=== PATIENT | female | born 1925 | race Caucasian/White ===

== ENCOUNTER 2016-08-29 15:55 | Inpatient (IN) | payer MEDICARE, BC ==
[~2016-08-29 15:55] MED LIST: ACTIVASE50 MG IV; ADULT LOW DOSE81 M1 PO; AUGMENTIN875 MG PO; BENICAR5 MG PO; BIOTIN PO; BIOTIN1 MG PO; BISCOLAX10 MG PR; BYSTOLIC10 MG PO; BYSTOLIC2.5 MG PO; CALCIUM500 M3 PO; CALCIUM600 M1 PO; CALCIUM600 MG PO; CARVEDILOL3.125 M1 PO; CEFTRIAXON2 GM/50 ML IV; COLACE100 M1 PO; COREG6.25 M1 PO; ECOTRIN325 M1 PO; ECOTRIN81 M1 PO; ECOTRIN81 M2 PO; IMDUR30 MG PO; IPRAT-ALBUT 0.5-3 ML INH; IRON PO; IRON1 TA1 PO; IRON325 ( 65 PO; ISOSORBIDE MONO30 M4 PO; LEVOTHROID25 MCG PO; LEVOTHROID50 MCG PO; LEVOTHYROXINE50 MC3 PO; LIPITOR80 M1 PO; LOVENOX30 MG/0.1 SC; MIRALAX12 EA PO; MIRALAX17 G1 PO; MIRALAX17 G2 PO; MUCINEX600 M1 PO; MUCINEX600 MG PO; NITROSTAT0.4 MG/TAB SL; NORVASC10 MG PO; NORVASC2.5 MG PO; NORVASC5 M2 PO; PLAVIX75 M1 PO; PLAVIX75 MG PO; PREDNISONE1 M1 PO; PREDNISONE10 M1; PROTONIX40 M2 PO; RANITIDINE HCL150 M3 PO; SINGULAIR10 M1 PO; SINGULAIR10 MG PO; SODIUM CHLORIDE IV; TALADINE150 MG PO; TYLENOL #31 TA1 PO; TYLENOL325 MG PO; VITAMIN D1000 UNIT PO; VYTORIN 10/80 T1 TAB PO; ZANTAC150 MG PO
[2016-08-29] MEDS ORDERED: ASPIR-LOW81 M1 PO (16:13)
[2016-08-29] MEDS ORDERED: BIOTIN1 M2 PO (16:14)
[2016-08-29] MEDS ORDERED: CALCIUM CARBON600 M2 PO (16:14)
[2016-08-29] MEDS ORDERED: COREG12.5 M1 PO (16:14)
[2016-08-29] MEDS ORDERED: LIPITOR80 M1 PO (16:14)
[2016-08-29] MEDS ORDERED: FEOSOL325 M1 PO (16:15)
[2016-08-29] MEDS ORDERED: CLOPIDOGREL75 M1 PO (16:15)
[2016-08-29] MEDS ORDERED: SYNTHROID50 MC1 PO (16:16)
[2016-08-29] MEDS ORDERED: CEFTRIAXON2000 MG/VI IV (16:16)
[2016-08-29] MEDS ORDERED: SINGULAIR10 M1 PO (16:17)
[2016-08-29] MEDS ORDERED: MUCINEX600 M1 PO (16:17)
[2016-08-29] MEDS ORDERED: PREDNISONE1 M1 PO (16:18)
[2016-08-29] MEDS ORDERED: MIRALAX17 G2 PO (16:18)
[2016-08-29] MEDS ORDERED: SENNA8.6 M2 PO (16:19)
[2016-08-29] MEDS ORDERED: TYLENOL EXTRA500 M1 PO (16:20)
[2016-08-29] MEDS ORDERED: AYR SALINE NASA14 GM (16:20)
[2016-08-29] MEDS ORDERED: CATHFLO ACTIVASE2 MG IV (16:21)
[2016-08-29] MEDS ORDERED: BISCOLAX10 MG PR (16:21)
[2016-08-29] MEDS ORDERED: IPRAT-ALBUT 0.5-3 ML INH (16:22)
[2016-08-29] MEDS ORDERED: MELATONIN5 M5 PO (16:23)
[2016-08-29] MEDS ORDERED: MILK OF MAGNESIA PO (16:23)
[2016-08-29] MEDS ORDERED: RANITIDINE HCL150 M2 PO (16:24)
[2016-08-29] MEDS ORDERED: NITROSTAT0.4 MG/TAB SL (16:24)
[2016-08-29 16:55] LABS: BASO % 0.3 % (0-2); EOS % 2.1 % (0-7); EOSINOPHIL ABSOLUTE COUNT 0.2 tho/cmm (0.0-0.7); HCT-HEMATOCRIT 28.7 % (34.0-49.0); HGB-HEMOGLOBIN 9.3 gm/dl (12.0-15.5); IMMATURE GRANULOCYTES ABSOLUTE 0.03 tho/cmm (0-0.03); IMMATURE GRANULOCYTES PERCENT 0.4 % (0-0.3); LYMPH % 6.8 % (20-45); LYMPH ABSOLUTE COUNT 0.5 tho/cmm (0.8-4.5); MCH (MEAN CORPUSCULAR HGB) 34.2 pg (28.0-32.0); MCHC MEAN CORPUSCULAR HGB CONC 32.4 % (32.0-36.0); MCV (MEAN CELL VOLUME) 105.5 fl (82.0-96.0); MEAN PLATELET VOLUME 10.5 cmc (9.4-12.4); MONO % 7.6 % (0-12); MONOCYTE ABSOLUTE COUNT 0.5 tho/cmm (0.0-1.2); NEUTROPHIL ABSOLUTE COUNT 5.9 tho/cmm (1.6-8.0); NEUTROPHIL-AUTOMATED 5.9 tho/cmm (1.6-8.0); NEUTROPHILS % 82.8 % (40-80); PLATELET COUNT 132 tho/cmm (150-450); RED BLOOD COUNT 2.72 mil/cmm (4.00-5.20); RED CELL DISTRIBUTION WIDTH 15.7 % (12.4-16.4); WHITE BLOOD COUNT 7.1 tho/cmm (4.0-10.0)
[2016-08-29 17:18] LABS: ANION GAP 10 mmol/L (0-20); BLOOD UREA NITROGEN 15 mg/dl (6-24); CALCIUM 8.9 mg/dl (8.5-10.5); CARBON DIOXIDE-VENOUS 29 mmol/L (22-32); CHLORIDE 103 mmol/l (96-110); CREATININE 0.83 mg/dl (0.50-1.10); GLUCOSE 150 mg/dL (70-110); POTASSIUM 4.3 mmol/L (3.7-5.1); SODIUM 138 mmol/L (135-145); eGFR VALUE FOR BLACK >60 mL/Min
[2016-08-29 17:49] LABS: INR 1.1 INR (0.9-1.1); PROTHROMBIN TIME 12.6 SECONDS (9.0-13.6)
[2016-08-30 04:53] LABS: ALBUMIN 3.1 g/dl (3.5-5.0); ALKALINE PHOSPHATASE 76 U/L (33-138); ALT/SGPT 32 U/L (12-78); ANION GAP 11 mmol/L (0-20); AST/SGOT 26 U/L (10-40); BLOOD UREA NITROGEN 13 mg/dl (6-24); CALCIUM 8.4 mg/dl (8.5-10.5); CARBON DIOXIDE-VENOUS 30 mmol/L (22-32); CHLORIDE 100 mmol/l (96-110); CREATININE 0.78 mg/dl (0.50-1.10); GLUCOSE 120 mg/dL (70-110); POTASSIUM 3.5 mmol/L (3.7-5.1); SODIUM 137 mmol/L (135-145); eGFR VALUE FOR BLACK >60 mL/Min
[2016-08-30 04:54] LABS: BASO % 0.5 % (0-2); EOS % 2.7 % (0-7); EOSINOPHIL ABSOLUTE COUNT 0.2 tho/cmm (0.0-0.7); HCT-HEMATOCRIT 30.1 % (34.0-49.0); HGB-HEMOGLOBIN 9.7 gm/dl (12.0-15.5); IMMATURE GRANULOCYTES ABSOLUTE 0.02 tho/cmm (0-0.03); IMMATURE GRANULOCYTES PERCENT 0.3 % (0-0.3); LYMPH % 13.6 % (20-45); MCH (MEAN CORPUSCULAR HGB) 34.4 pg (28.0-32.0); MCHC MEAN CORPUSCULAR HGB CONC 32.2 % (32.0-36.0); MCV (MEAN CELL VOLUME) 106.7 fl (82.0-96.0); MEAN PLATELET VOLUME 10.6 cmc (9.4-12.4); MONO % 6.7 % (0-12); MONOCYTE ABSOLUTE COUNT 0.5 tho/cmm (0.0-1.2); NEUTROPHIL ABSOLUTE COUNT 5.6 tho/cmm (1.6-8.0); NEUTROPHIL-AUTOMATED 5.6 tho/cmm (1.6-8.0); NEUTROPHILS % 76.2 % (40-80); PLATELET COUNT 148 tho/cmm (150-450); RED BLOOD COUNT 2.82 mil/cmm (4.00-5.20); RED CELL DISTRIBUTION WIDTH 15.9 % (12.4-16.4); WHITE BLOOD COUNT 7.4 tho/cmm (4.0-10.0)
[2016-08-30 05:53] LABS: URINE BILIRUBIN NEGATIVE (NEG); URINE BLOOD NEGATIVE (NEG); URINE GLUCOSE (UA) NEGATIVE (NEG); URINE KETONE NEGATIVE (NEG); URINE LEUKOCYTE ESTERASE NEGATIVE (NEG); URINE NITRITE NEGATIVE (NEG); URINE PH 6.5 (5.0-8.0); URINE PROTEIN NEGATIVE (NEG)
[2016-08-30 05:54] LABS: URINE APPEARANCE CLEAR; URINE COLOR PALE YELLOW; URINE SPECIFIC GRAVITY 1.012 (1.003-1.030)
[2016-08-30 20:54] LABS: PROCALCITONIN <0.05 ng/ml (0.05-0.09)
[2016-08-31 05:10] LABS: BASO % 0.7 % (0-2); EOS % 6.3 % (0-7); EOSINOPHIL ABSOLUTE COUNT 0.3 tho/cmm (0.0-0.7); HCT-HEMATOCRIT 31.7 % (34.0-49.0); HGB-HEMOGLOBIN 10.3 gm/dl (12.0-15.5); IMMATURE GRANULOCYTES ABSOLUTE 0.03 tho/cmm (0-0.03); IMMATURE GRANULOCYTES PERCENT 0.6 % (0-0.3); LYMPH % 18.8 % (20-45); MCH (MEAN CORPUSCULAR HGB) 34.2 pg (28.0-32.0); MCHC MEAN CORPUSCULAR HGB CONC 32.5 % (32.0-36.0); MCV (MEAN CELL VOLUME) 105.3 fl (82.0-96.0); MEAN PLATELET VOLUME 10.5 cmc (9.4-12.4); MONO % 7.8 % (0-12); MONOCYTE ABSOLUTE COUNT 0.4 tho/cmm (0.0-1.2); NEUTROPHIL ABSOLUTE COUNT 3.5 tho/cmm (1.6-8.0); NEUTROPHIL-AUTOMATED 3.5 tho/cmm (1.6-8.0); NEUTROPHILS % 65.8 % (40-80); PLATELET COUNT 139 tho/cmm (150-450); RED BLOOD COUNT 3.01 mil/cmm (4.00-5.20); RED CELL DISTRIBUTION WIDTH 15.5 % (12.4-16.4); WHITE BLOOD COUNT 5.4 tho/cmm (4.0-10.0)
[2016-08-31 05:27] LABS: ANION GAP 12 mmol/L (0-20); BLOOD UREA NITROGEN 14 mg/dl (6-24); CALCIUM 8.3 mg/dl (8.5-10.5); CARBON DIOXIDE-VENOUS 32 mmol/L (22-32); CHLORIDE 98 mmol/l (96-110); GLUCOSE 96 mg/dL (70-110); MAGNESIUM 1.6 mg/dl (1.3-2.6); POTASSIUM 3.7 mmol/L (3.7-5.1); SODIUM 138 mmol/L (135-145); eGFR VALUE FOR BLACK >60 mL/Min
[2016-08-31] MEDS ORDERED: LASIX40 M1 PO (15:26)
== END 2016-08-31 18:05 | disposition other institution (70) | DRG 871 ==
LOC: EDMED 15:55 → EMR2 20:16 → PCUB 23:28
PROVIDERS: Emergency Medicine; Internal Medicine; Internal Medicine Critical Care Medicine; Internal Medicine Interventional Cardiology; Nurse Practitioner Family; ADMIT Hospitalist
DX: A40.8 Other streptococcal sepsis (principal); J96.21 Acute and chronic respiratory failure with hypoxia; R65.20 Severe sepsis without septic shock; I50.33 Acute on chronic diastolic (congestive) heart failure; I13.0 Hypertensive heart and chronic kidney disease with heart failure and stage 1 through stage 4 chronic kidney disease, or unspecified chronic kidney disease; R74.8 Abnormal levels of other serum enzymes; I05.2 Rheumatic mitral stenosis with insufficiency; I27.2 Other secondary pulmonary hypertension; Z95.5 Presence of coronary angioplasty implant and graft; E87.6 Hypokalemia; E78.5 Hyperlipidemia, unspecified; I73.9 Peripheral vascular disease, unspecified; Z96.652 Presence of left artificial knee joint; N18.9 Chronic kidney disease, unspecified; E03.9 Hypothyroidism, unspecified; J45.909 Unspecified asthma, uncomplicated; K21.9 Gastro-esophageal reflux disease without esophagitis; Z86.718 Personal history of other venous thrombosis and embolism; F41.9 Anxiety disorder, unspecified; K59.09 Other constipation; I65.29 Occlusion and stenosis of unspecified carotid artery; I25.118 Atherosclerotic heart disease of native coronary artery with other forms of angina pectoris; I25.708 Atherosclerosis of coronary artery bypass graft(s), unspecified, with other forms of angina pectoris; D64.9 Anemia, unspecified; I07.1 Rheumatic tricuspid insufficiency
CPT/HCPCS: J0696; J1644; J1650; J1940; J2997; J7050; J7512; Q9967

== ENCOUNTER 2016-09-28 20:48 | Inpatient (IN) | payer MEDICARE, BC ==
[~2016-09-28 20:48] MED LIST changes: +ASPIR-LOW81 M1 PO; +AYR SALINE NASA14 GM; +BIOTIN1 M2 PO; +CALCIUM CARBON600 M2 PO; +CATHFLO ACTIVASE2 MG IV; +CEFTRIAXON2000 MG/VI IV; +CLOPIDOGREL75 M1 PO; +COREG12.5 M1 PO; +FEOSOL325 M1 PO; +LASIX40 M1 PO; +MELATONIN5 M5 PO; +MILK OF MAGNESIA PO; +RANITIDINE HCL150 M2 PO; +SENNA8.6 M2 PO; +SYNTHROID50 MC1 PO; +TYLENOL EXTRA500 M1 PO
[2016-09-28 21:39] LABS: BASO % 0.4 % (0-2); EOS % 0.3 % (0-7); HCT-HEMATOCRIT 35.1 % (34.0-49.0); HGB-HEMOGLOBIN 11.5 gm/dl (12.0-15.5); IMMATURE GRANULOCYTES ABSOLUTE 0.03 tho/cmm (0-0.03); IMMATURE GRANULOCYTES PERCENT 0.3 % (0-0.3); LYMPH ABSOLUTE COUNT 0.6 tho/cmm (0.8-4.5); MCH (MEAN CORPUSCULAR HGB) 34.2 pg (28.0-32.0); MCHC MEAN CORPUSCULAR HGB CONC 32.8 % (32.0-36.0); MCV (MEAN CELL VOLUME) 104.5 fl (82.0-96.0); MEAN PLATELET VOLUME 10.9 cmc (9.4-12.4); MONOCYTE ABSOLUTE COUNT 0.6 tho/cmm (0.0-1.2); NEUTROPHIL ABSOLUTE COUNT 8.3 tho/cmm (1.6-8.0); NEUTROPHIL-AUTOMATED 8.3 tho/cmm (1.6-8.0); PLATELET COUNT 203 tho/cmm (150-450); RED BLOOD COUNT 3.36 mil/cmm (4.00-5.20); RED CELL DISTRIBUTION WIDTH 14.4 % (12.4-16.4); WHITE BLOOD COUNT 9.5 tho/cmm (4.0-10.0)
[2016-09-28 21:55] LABS: ANION GAP 12 mmol/L (0-20); BLOOD UREA NITROGEN 30 mg/dl (6-24); CALCIUM 8.8 mg/dl (8.5-10.5); CARBON DIOXIDE-VENOUS 30 mmol/L (22-32); CHLORIDE 100 mmol/l (96-110); GLUCOSE 177 mg/dL (70-110); SODIUM 138 mmol/L (135-145); eGFR VALUE FOR BLACK 52 mL/Min
[2016-09-28 22:12] LABS: PROCALCITONIN 0.15 ng/ml (0.05-0.09)
[2016-09-29 00:38] LABS: URINE BILIRUBIN NEGATIVE (NEG); URINE BLOOD NEGATIVE (NEG); URINE GLUCOSE (UA) NEGATIVE (NEG); URINE KETONE NEGATIVE (NEG); URINE LEUKOCYTE ESTERASE NEGATIVE (NEG); URINE NITRITE NEGATIVE (NEG); URINE PH 6.5 (5.0-8.0); URINE PROTEIN NEGATIVE (NEG); URINE SPECIFIC GRAVITY 1.005 (1.003-1.030)
[2016-09-29 00:39] LABS: URINE APPEARANCE CLEAR; URINE COLOR PALE YELLOW
[2016-09-29] MEDS ORDERED: COLACE100 M1 PO (01:29)
[2016-09-29] MEDS ORDERED: NORVASC2.5 M1 PO (01:29)
[2016-09-29 03:12] LABS: ABG CO2 ARTERIAL 27 mmol/L (21-27); ARTERIAL BLD GAS O2 SATURATION 92 % (95-98); ARTERIAL BLOOD GAS PCO2 35 mmHg (32-45); ARTERIAL PO2 61 mmHg (70-100); BICARBONATE 26 mmol/L (21-28); BLOOD GAS BASE EXCESS 3 mM/L (-/+3); PH 7.48 Units (7.35-7.45)
[2016-09-29 05:21] LABS: BASO % 0.3 % (0-2); EOS % 0.1 % (0-7); HCT-HEMATOCRIT 32.5 % (34.0-49.0); HGB-HEMOGLOBIN 10.6 gm/dl (12.0-15.5); IMMATURE GRANULOCYTES ABSOLUTE 0.03 tho/cmm (0-0.03); IMMATURE GRANULOCYTES PERCENT 0.3 % (0-0.3); LYMPH % 4.8 % (20-45); LYMPH ABSOLUTE COUNT 0.4 tho/cmm (0.8-4.5); MCHC MEAN CORPUSCULAR HGB CONC 32.6 % (32.0-36.0); MCV (MEAN CELL VOLUME) 104.2 fl (82.0-96.0); MEAN PLATELET VOLUME 10.6 cmc (9.4-12.4); MONO % 5.5 % (0-12); MONOCYTE ABSOLUTE COUNT 0.5 tho/cmm (0.0-1.2); NEUTROPHIL ABSOLUTE COUNT 7.7 tho/cmm (1.6-8.0); NEUTROPHIL-AUTOMATED 7.7 tho/cmm (1.6-8.0); PLATELET COUNT 174 tho/cmm (150-450); RED BLOOD COUNT 3.12 mil/cmm (4.00-5.20); RED CELL DISTRIBUTION WIDTH 14.3 % (12.4-16.4); WHITE BLOOD COUNT 8.7 tho/cmm (4.0-10.0)
[2016-09-29 05:31] LABS: ABG CO2 ARTERIAL 29 mmol/L (21-27); ARTERIAL BLD GAS O2 SATURATION 98 % (95-98); ARTERIAL BLOOD GAS PCO2 36 mmHg (32-45); ARTERIAL PO2 87 mmHg (70-100); BICARBONATE 28 mmol/L (21-28); BLOOD GAS BASE EXCESS 5 mM/L (-/+3)
[2016-09-29 10:26] LABS: ALB/GLOB RATIO 0.8 (0.8-2.0); ALBUMIN 2.9 g/dl (3.5-5.0); ALKALINE PHOSPHATASE 63 U/L (33-138); ALT/SGPT 12 U/L (12-78); ANION GAP 13 mmol/L (0-20); AST/SGOT 27 U/L (10-40); BLOOD UREA NITROGEN 27 mg/dl (6-24); CALCIUM 7.9 mg/dl (8.5-10.5); CARBON DIOXIDE-VENOUS 27 mmol/L (22-32); CHLORIDE 104 mmol/l (96-110); CREATININE 0.98 mg/dl (0.50-1.10); GLUCOSE 137 mg/dL (70-110); POTASSIUM 3.3 mmol/L (3.7-5.1); SODIUM 141 mmol/L (135-145); eGFR VALUE FOR BLACK 59 mL/Min
--- NOTE | 2016-09-29 19:31 | NUR ---
PATIENT HAD A CRITICAL TROPONIN @ 2.99. NOTIFIED GABRIELLA WITH [facility] @ [id number]. ORDERS TO GET ANOTHER EKG. PATIENT DENIES CHEST PAIN/PRESSURE
[2016-09-30 04:37] LABS: ANION GAP 10 mmol/L (0-20); BLOOD UREA NITROGEN 34 mg/dl (6-24); CARBON DIOXIDE-VENOUS 33 mmol/L (22-32); CHLORIDE 101 mmol/l (96-110); CREATININE 1.12 mg/dl (0.50-1.10); GLUCOSE 114 mg/dL (70-110); SODIUM 141 mmol/L (135-145); eGFR VALUE FOR BLACK 50 mL/Min
[2016-09-30 04:38] LABS: POTASSIUM 2.9 mmol/L (3.7-5.1)
[2016-10-01 06:32] LABS: ANION GAP 13 mmol/L (0-20); BLOOD UREA NITROGEN 36 mg/dl (6-24); CALCIUM 8.2 mg/dl (8.5-10.5); CARBON DIOXIDE-VENOUS 26 mmol/L (22-32); CHLORIDE 106 mmol/l (96-110); CREATININE 1.39 mg/dl (0.50-1.10); GLUCOSE 154 mg/dL (70-110); SODIUM 139 mmol/L (135-145); eGFR VALUE FOR BLACK 39 mL/Min
[2016-10-01 06:35] LABS: POTASSIUM 5.6 mmol/L (3.7-5.1)
[2016-10-01 09:58] LABS: BASO % 0.1 % (0-2); HCT-HEMATOCRIT 31.3 % (34.0-49.0); HGB-HEMOGLOBIN 9.9 gm/dl (12.0-15.5); IMMATURE GRANULOCYTES ABSOLUTE 0.06 tho/cmm (0-0.03); IMMATURE GRANULOCYTES PERCENT 0.8 % (0-0.3); LYMPH % 2.9 % (20-45); LYMPH ABSOLUTE COUNT 0.2 tho/cmm (0.8-4.5); MCH (MEAN CORPUSCULAR HGB) 33.8 pg (28.0-32.0); MCHC MEAN CORPUSCULAR HGB CONC 31.6 % (32.0-36.0); MCV (MEAN CELL VOLUME) 106.8 fl (82.0-96.0); MEAN PLATELET VOLUME 10.9 cmc (9.4-12.4); MONO % 9.3 % (0-12); MONOCYTE ABSOLUTE COUNT 0.7 tho/cmm (0.0-1.2); NEUTROPHIL ABSOLUTE COUNT 6.8 tho/cmm (1.6-8.0); NEUTROPHIL-AUTOMATED 6.8 tho/cmm (1.6-8.0); NEUTROPHILS % 86.9 % (40-80); PLATELET COUNT 140 tho/cmm (150-450); RED BLOOD COUNT 2.93 mil/cmm (4.00-5.20); RED CELL DISTRIBUTION WIDTH 14.3 % (12.4-16.4); WHITE BLOOD COUNT 7.8 tho/cmm (4.0-10.0)
[2016-10-01 10:49] LABS: PROCALCITONIN 0.25 ng/ml (0.05-0.09)
[2016-10-01 12:29] LABS: HCT-HEMATOCRIT 28.9 % (34.0-49.0); HGB-HEMOGLOBIN 9.1 gm/dl (12.0-15.5); MCH (MEAN CORPUSCULAR HGB) 34.1 pg (28.0-32.0); MCHC MEAN CORPUSCULAR HGB CONC 31.5 % (32.0-36.0); MCV (MEAN CELL VOLUME) 108.2 fl (82.0-96.0); MEAN PLATELET VOLUME 11.2 cmc (9.4-12.4); NEUTROPHIL-AUTOMATED 7.3 tho/cmm (1.6-8.0); PLATELET COUNT 133 tho/cmm (150-450); RED BLOOD COUNT 2.67 mil/cmm (4.00-5.20); RED CELL DISTRIBUTION WIDTH 14.5 % (12.4-16.4); WHITE BLOOD COUNT 8.2 tho/cmm (4.0-10.0)
[2016-10-01 12:42] LABS: INR 1.6 INR (0.9-1.1); PROTHROMBIN TIME 18.9 SECONDS (9.0-13.6)
[2016-10-01 12:57] LABS: ABG CO2 ARTERIAL 15 mmol/L (21-27); ARTERIAL BLD GAS O2 SATURATION 85 % (95-98); ARTERIAL BLOOD GAS PCO2 39 mmHg (32-45); ARTERIAL PO2 67 mmHg (70-100); BICARBONATE 14 mmol/L (21-28); BLOOD GAS BASE EXCESS -14 mM/L (-/+3)
[2016-10-01 13:03] LABS: ALB/GLOB RATIO 0.8 (0.8-2.0); ALBUMIN 2.2 g/dl (3.5-5.0); ALKALINE PHOSPHATASE 68 U/L (33-138); BILIRUBIN,TOTAL 2.6 mg/dl (0-1.5); BLOOD UREA NITROGEN 41 mg/dl (6-24); CALCIUM 7.2 mg/dl (8.5-10.5); CARBON DIOXIDE-VENOUS 20 mmol/L (22-32); CHLORIDE 111 mmol/l (96-110); GLUCOSE 126 mg/dL (70-110); SODIUM 143 mmol/L (135-145)
[2016-10-01 13:07] LABS: PROCALCITONIN 0.25 ng/ml (0.05-0.09)
[2016-10-01 13:16] LABS: PH 7.16 Units (7.35-7.45)
[2016-10-01 13:26] LABS: ANION GAP 18 mmol/L (0-20); CREATININE 1.79 mg/dl (0.50-1.10); POTASSIUM 6.2 mmol/L (3.7-5.1); eGFR VALUE FOR BLACK 29 mL/Min
[2016-10-01 13:27] LABS: ALT/SGPT 1544 U/L (12-78); AST/SGOT 2402 U/L (10-40)
[2016-10-01 13:57] LABS: BAND % 18 % (0-20); BAND ABSOLUTE COUNT 1.5 tho/cmm (0-2.0)
[2016-10-01 15:04] LABS: ABG CO2 ARTERIAL 18 mmol/L (21-27); ARTERIAL BLD GAS O2 SATURATION 89 % (95-98); ARTERIAL BLOOD GAS PCO2 45 mmHg (32-45); ARTERIAL PO2 71 mmHg (70-100); BICARBONATE 17 mmol/L (21-28); BLOOD GAS BASE EXCESS -10 mM/L (-/+3)
--- NOTE | 2016-10-01 19:27 | NUR ---
RN ARRIVED IN PATIENT ROOM, SOME FAMILY AT BEDSIDE. MAXED ON ALL PRESSORS. REPORT RECEIVED. IMS PAGED FOR NO URINE OUTPUT AND HIGH K. IMS HERE AND DISCUSSING WITH FAMILY PATIENT CURRENT STATUS. TOLD FAMILY THAT IF PT'S BLOOD PRESSURE WERE TO DECREASE, WE HAVE NO MORE MEDICATION SUPPORT TO ADD. SHE CURRENTLY HAS A STABLE BLOOD PRESSURE AND HEART RATE-SEE CCU FLOW SHEET. URINE OUTPUT DISCUSSED WITH FAMILY. FAMILY IS NOW IN ROOM ALLOWING FAMILY NOT HERE TO TALK TO HER THRU THE PHONE. FAMILY ALL AT BEDSIDE. WILL CONTINUE TO MONITOR AND SUPPORT. PRESSORS ALL REMAIN MAXED.
[2016-10-01 19:29] LABS: BASO % 0.1 % (0-2); HCT-HEMATOCRIT 29.8 % (34.0-49.0); HGB-HEMOGLOBIN 9.4 gm/dl (12.0-15.5); IMMATURE GRANULOCYTES ABSOLUTE 0.08 tho/cmm (0-0.03); IMMATURE GRANULOCYTES PERCENT 0.5 % (0-0.3); LYMPH % 2.3 % (20-45); LYMPH ABSOLUTE COUNT 0.3 tho/cmm (0.8-4.5); MCH (MEAN CORPUSCULAR HGB) 33.7 pg (28.0-32.0); MCHC MEAN CORPUSCULAR HGB CONC 31.5 % (32.0-36.0); MCV (MEAN CELL VOLUME) 106.8 fl (82.0-96.0); MEAN PLATELET VOLUME 11.4 cmc (9.4-12.4); MONO % 3.4 % (0-12); MONOCYTE ABSOLUTE COUNT 0.5 tho/cmm (0.0-1.2); NEUTROPHIL ABSOLUTE COUNT 13.7 tho/cmm (1.6-8.0); NEUTROPHIL-AUTOMATED 13.7 tho/cmm (1.6-8.0); NEUTROPHILS % 93.7 % (40-80); PLATELET COUNT 143 tho/cmm (150-450); RED BLOOD COUNT 2.79 mil/cmm (4.00-5.20); RED CELL DISTRIBUTION WIDTH 14.1 % (12.4-16.4)
[2016-10-01 19:36] LABS: WHITE BLOOD COUNT 14.6 tho/cmm (4.0-10.0)
[2016-10-01 19:52] LABS: ALBUMIN 2.5 g/dl (3.5-5.0); ALKALINE PHOSPHATASE 87 U/L (33-138); BILIRUBIN,TOTAL 3.5 mg/dl (0-1.5); BLOOD UREA NITROGEN 41 mg/dl (6-24); CARBON DIOXIDE-VENOUS 18 mmol/L (22-32); CHLORIDE 107 mmol/l (96-110); CREATININE 1.97 mg/dl (0.50-1.10); SODIUM 142 mmol/L (135-145); eGFR VALUE FOR BLACK 25 mL/Min
[2016-10-01 19:55] LABS: ANION GAP 22 mmol/L (0-20); GLUCOSE 331 mg/dL (70-110)
[2016-10-01 19:56] LABS: CALCIUM 6.5 mg/dl (8.5-10.5)
[2016-10-01 20:07] LABS: ALT/SGPT 3319 U/L (12-78); AST/SGOT 6314 U/L (10-40)
== END 2016-10-01 21:24 | disposition expired | DRG 853 ==
LOC: EDMED 20:48 → EMR2 23:40 → PCUA 09-29 00:20 → CCU 10-01 10:51 → ORW 10-01 15:58 → CCU 10-01 17:51
PROVIDERS: Emergency Medicine; Family Medicine; Hospitalist; Internal Medicine; Internal Medicine Clinical Cardiac Electrophysiology; Internal Medicine Pulmonary Disease; Physician Assistant Medical; ADMIT Family Medicine
PROC: 5A1945Z Respiratory Ventilation, 24-96 Consecutive Hours (ICD-10-PCS; principal; 2016-09-29)
PROC: B246ZZZ Ultrasonography of Right and Left Heart (ICD-10-PCS; 2016-09-29)
PROC: 0WJP0ZZ Inspection of Gastrointestinal Tract, Open Approach (ICD-10-PCS; 2016-10-01)
PROC: 02HV33Z Insertion of Infusion Device into Superior Vena Cava, Percutaneous Approach (ICD-10-PCS; 2016-10-01)
PROC: B548ZZA Ultrasonography of Superior Vena Cava, Guidance (ICD-10-PCS; 2016-10-01)
PROC: B246ZZZ Ultrasonography of Right and Left Heart (ICD-10-PCS; 2016-10-01)
DX: A41.9 Sepsis, unspecified organism (principal); R65.21 Severe sepsis with septic shock; J96.01 Acute respiratory failure with hypoxia; J81.0 Acute pulmonary edema; I50.33 Acute on chronic diastolic (congestive) heart failure; N17.9 Acute kidney failure, unspecified; I11.0 Hypertensive heart disease with heart failure; D64.9 Anemia, unspecified; D75.89 Other specified diseases of blood and blood-forming organs; E03.9 Hypothyroidism, unspecified; E78.5 Hyperlipidemia, unspecified; E87.6 Hypokalemia; I25.10 Atherosclerotic heart disease of native coronary artery without angina pectoris; I27.2 Other secondary pulmonary hypertension; I34.0 Nonrheumatic mitral (valve) insufficiency; I36.1 Nonrheumatic tricuspid (valve) insufficiency; I65.29 Occlusion and stenosis of unspecified carotid artery; I73.9 Peripheral vascular disease, unspecified; K58.9 Irritable bowel syndrome, unspecified; K59.09 Other constipation; R74.8 Abnormal levels of other serum enzymes; Z66 Do not resuscitate; Z95.0 Presence of cardiac pacemaker
CPT/HCPCS: C1751; C1758; C9113; J0171; J1170; J1200; J1250; J1335; J1650; J1940; J2060; J2270; J2405; J2930; J3370; J3420; J7030; J7040; J7512; P9045